=== PATIENT | female | born 1930 | race Caucasian/White ===

== ENCOUNTER 2019-02-12 03:28 | Inpatient (IN) | payer MEDICARE ==
[2019-02-12 03:58] LABS: #Basophils 0.1 thou/uL (0.0-0.2); #Eosinphils 0.1 thou/uL (0.0-0.7); #Lymphocytes 2.1 thou/uL (1.20-3.40); #Monocytes 0.6 thou/uL (0.11-0.59); %Basophils 0.5 % (0.0-1.0); %Eosinophils 1.2 % (0.0-10.0); %Lymphocytes 20.7 % (21.0-51.0); %Monocytes 6.3 % (0.0-10.0); %Neutrophils 71.2 % (42.0-75.0); Hemoglobin 13.5 g/dL (12.0-16.0); Mean Corpuscular HGB CONC 33.6 g/dL (32.0-36.0); Mean Corpuscular Hemoglobin 30.6 pg (27.0-31.0); Mean Platelet Volume 8.8 fL (7.4-10.4); Platelet Count 253 thou/uL (130-400); White Blood Cell (WBC) Count 9.9 thou/uL (4.8-10.8)
[2019-02-12 04:07] LABS: INR-International Normal Ratio 0.9; Prothrombin Time 12.3 SEC (12.0-14.7)
[2019-02-12 04:16] LABS: ALT (SGPT) 13 U/L (8-55); AST (SGOT) 32 U/L (5-34); Albumin 3.8 g/dL (3.4-4.8); Alkaline Phosphatase 54 U/L (40-110); Anion Gap 12 mmol/L (10-20); BUN (Urea Nitrogen) 28 mg/dL (9.8-20.1); Bilirubin, Total 0.3 mg/dL (0.2-1.2); Calc. Creatinine Clearance 0 mL/min (70-130); Calcium 9.2 mg/dL (7.8-10.44); Carbon Dioxide 26 mmol/L (23-31); Chloride 105 mmol/L (98-107); Estimated GFR-MDRD 79; Globulin 2.8 g/dL (2.4-3.5); Glucose 122 mg/dL (83-110); Protein, Total 6.6 g/dL (6.0-8.3); Sodium 139 mmol/L (136-145)
[2019-02-12] MEDS ORDERED: Ondansetron ODT 4 MG TAB PO PRN (05:12)
[2019-02-12] MEDS ORDERED: Acetaminophen 325 MG TAB PO PRN (05:12)
[2019-02-12] MEDS ORDERED: Aspirin 325 MG TAB ONE (05:19)
[2019-02-12] MEDS ORDERED: Atorvastatin Calcium 40 MG TAB PO SCH (06:00)
[2019-02-12 06:43] LABS: Hemoglobin A1c 5.5 % (4.0-6.0)
--- NOTE | 2019-02-12 07:10 | RAD ---
RADIOGRAPH CHEST 1 VIEW: DATE: 02/12/2019 3:38 AM HISTORY: 88-year-old female with acute stroke symptoms. Concern for aspiration. FINDINGS: There is hyperlucency of the upper lung zones, consistent with COPD. There is no evidence of airspace density, pulmonary edema, or pneumothorax. The lateral costophrenic angles are not effaced. IMPRESSION: 1) No acute pulmonary findings. 2) emphysema.
--- NOTE | 2019-02-12 07:52 | CT ---
PRELIMINARY REPORT/[facility]/AFTER HOURS PROCEDURE CT HEAD WITHOUT INTRAVENOUS CONTRAST: CLINICAL HISTORY: *Level 1 stroke alert* F88, last seen normal at 0030. Got up to bathroom, could not get up/left leg not working. TECHNIQUE: Axial computed tomography images of the head/brain without intravenous contrast. COMPARISON: None provided. FINDINGS BRAIN: No acute intraparenchymal hemorrhage. No mass lesion. Hypodensity within the left basal gangl ia, left sub-insular cortex and left centrum ovale which are concerning for subacute ischemic stroke. Additional periventricular and subcortical white matter hypodensities compatible with small vessel ischemic changes. Age-related cerebral atrophy. VENTRICLES: No hydrocephalus. ORBITS: The orbits are unremarkable. SINUSES AND MASTOIDS: The paranasal sinuses and mastoid air cells are clear. SOFT TISSUES: No significant facial or scalp soft tissue swelling evident. No radiopaque foreign body is seen. BONES: No acute skull fracture. IMPRESSION: 1. Hypodensity within left basal ganglia and left sub-insular cortex concerning for subacute ischemic stroke. This can be confirmed with MRI as clinically warranted. No evidence of acute intra-cranial hemorrhage. 2. Additional periventricular and subcortical white matter hypodensities compatible with small vessel ischemic changes with associated age-related cerebral volume loss. ELECTRONICALLY SIGNED BY: Jose Luis Norris M.D. Feb 12, 2019 4:09:32 AM NECK BAND MAKER This report is intended for review by the ordering physician only, in accordance of law. If you recei ve this report in error, please call [facility] at [phone]. FINAL REPORT CT BRAIN NONCONTRAST: 02/12/2019 3:37 a.m. HISTORY: An 88-year-old male undergoing acute stroke. Left lower extremity weakness. COMPARISON: FINDINGS: There are moderate to severe chronic ischemic white matter changes of the cerebrum. No acute intracra nial hemorrhage, mass effect, midline shift, obstructive hydrocephalus or extraaxial fluid collection . In addition to the diffuse low attenuation caused by the chronic ischemic white matter changes, muc h of the left basal ganglia and some of the left caudate head appears to have an asymmetrically great er degree of slightly low attenuation. This raises the possibility of an acute or subacute infarction involving the left corpus striatum. No major disagreement with the preliminary report by [facility]. IMPRESSION: 1. Questionable moderate size infarction of the left corpus striatum, either acute or subacute. A non contrast MRI would be useful in this regard. 2. Moderate to severe chronic ischemic white matter changes. JN R CODE QA POS: OFF
--- NOTE | 2019-02-12 08:36 | CT ---
PRELIMINARY REPORT/[facility]/AFTER HOURS PROCEDURE CTA HEAD WITH INTRAVENOUS CONTRAST: HISTORY: *Level I stroke alert* F88, last seen normal at 0030. Got up to bathroom, could not get up/left leg not working. TECHNIQUE: Axial CTA images of the head with intravenous contrast. MIP reconstructed images were created and rev iewed. CONTRAST: With Isovue-370 100 mL. COMPARISON: None provided. FINDINGS INTERNAL CAROTID ARTERIES: The intracranial ICAs are patent with no significant stenosis. No occlusio n. No aneurysm. Mild calcific atherosclerosis. ANTERIOR CEREBRAL ARTERIES: No significant stenosis. No occlusion. No aneurysm. MIDDLE CEREBRAL ARTERIES: No significant stenosis. No occlusion. No aneurysm. POSTERIOR CEREBRAL ARTERIES: No significant stenosis. No occlusion. No aneurysm. BASILAR ARTERY: No significant stenosis. No occlusion. No aneurysm. VERTEBRAL ARTERIES: No significant stenosis. No occlusion. No aneurysm. Dominant left vertebral arter y. SOFT TISSUES: No acute finding. No masses or lymphadenopathy. The visualized lung apices are clear. Visualized soft tissues of the neck are within normal limits. BONES: No acute osseous abnormality. Multilevel degenerative changes of the cervical spine to includ e loss of cervical lordosis and multilevel severe disc changes. IMPRESSION: 1. Unremarkable CTA of the head. No major arterial occlusion. 2. Unremarkable CTA of the neck. Mild scattered atherosclerosis. ELECTRONICALLY SIGNED BY: Jose Luis Norris M.D. Feb 12, 2019 4:14:31 AM COMPUTATIONAL LINGUIST This report is intended for review by the ordering physician only, in accordance of law. If you recei ve this report in error, please call [facility] at [phone]. FINAL REPORT CTA OF THE HEAD AND CTA OF THE NECK WITH CONTRAST: FINDINGS/IMPRESSION: I agree with the findings and impression given in the preliminary report per [facility] physici an. 1. There is mild atherosclerotic disease in the cervical internal carotid arteries without significa nt stenosis per NASCET criteria. 2. No significant intracranial vascular abnormality. CODE QA POS: [facility]
--- NOTE | 2019-02-12 09:23 | PDOC.HHP ---
Hospitalist HPI - History of Present Illness Left arm and leg weakness History of Present Illness: 88 yo female with HTN presented to ED due to sudden onset left arm and leg weakness. She states she was playing dominos with her family yesterday evening when she started feeling weak in her left hand. Shortly thereafter, she had trouble walking with weakness in her left leg. Hence, she presented to ED this AM. In the ER, she had a CT head that showed new CVA. She is being admitted for the same. Currently, she states that her left hand is getting stronger but continues to report weakness in her left leg. Denies any tingling or numbness. No aggravating or relieving factors. No fever, chills, back pain, headache, vision changes, V/D/C. She reports some nausea and dry cough. No sputum, SOB, CP. No palpitations or lightheadedness. No difficulty swallowing or choking sensations. No seizures or involuntary movements. No urinary symptoms, rash or bruising. No swelling in her legs Hospitalist ROS - Review of Systems All other systems reviewed; all pertinent +/- noted in HPI/Subj Hospitalist History - Past Medical History Source: patient Cardiac: reports: HTN - Past Surgical History Past Surgical History: reports: Total Knee Replacement (Right) - Family History Family History: reports: cardiac disorder (father of [place]) - Social History Smoking Status: Former smoker Tobacco Type: cigarettes Alcohol: reports: None Drugs: reports: none Living Situation: Alone Activity level: uses cane/walker - Exam General Appearance: awake alert, ill appearing Eye: PERRL, anicteric sclera ENT: normocephalic atraumatic, no oropharyngeal lesions, moist mucosa Neck: supple, symmetric, no JVD, no thyromegaly, no lymphadenopathy, no carotid bruit Heart: RRR, no murmur, no gallops, no rubs, normal peripheral pulses Respiratory: CTAB, no wheezes, no rales, no ronchi, normal chest expansion, no tachypnea, normal percussion Gastrointestinal: soft, non-tender, non-distended, normal bowel sounds, no palpable masses, no hepatomegaly, no splenomegaly Extremities: no cyanosis, no clubbing, no edema Skin: normal turgor, no lesions, no rashes Neurological: cranial nerve grossly intact, normal sensation to touch. negative : facial droop Musculoskeletal: normal tone, no muscle wasting Musculoskeletal - other findings: power 5/5 both UE and Right LE; 4/5 in left LE Psychiatric: normal affect, normal behavior, A&O x 3 Hospitalist Results - Labs Result Diagrams: 02/12/19 03:42 02/12/19 03:42 Lab results: WBC 9.9 thou/uL (4.8-10.8) 02/12/19 03:42 Hgb 13.5 g/dL (12.0-16.0) 02/12/19 03:42 Hct 40.1 % (36.0-47.0) 02/12/19 03:42 MCV 91.0 fL (78.0-98.0) 02/12/19 03:42 Plt Count 253 thou/uL (130-400) 02/12/19 03:42 Neutrophils % 71.2 % (42.0-75.0) 02/12/19 03:42 Sodium 139 mmol/L (136-145) 02/12/19 03:42 Potassium 4.0 mmol/L (3.5-5.1) 02/12/19 03:42 Chloride 105 mmol/L (98-107) 02/12/19 03:42 Carbon Dioxide 26 mmol/L (23-31) 02/12/19 03:42 BUN 28 mg/dL (9.8-20.1) H 02/12/19 03:42 Creatinine 0.70 mg/dL (0.6-1.1) 02/12/19 03:42 Glucose 122 mg/dL (83-110) H 02/12/19 03:42 Calcium 9.2 mg/dL (7.8-10.44) 02/12/19 03:42 Total Bilirubin 0.3 mg/dL (0.2-1.2) 02/12/19 03:42 AST 32 U/L (5-34) 02/12/19 03:42 ALT 13 U/L (8-55) 02/12/19 03:42 Alkaline Phosphatase 54 U/L (40-110) 02/12/19 03:42 Serum Total Protein 6.6 g/dL (6.0-8.3) 02/12/19 03:42 Albumin 3.8 g/dL (3.4-4.8) 02/12/19 03:42 - EKG Interpretation EKG: Personally reviewed - Sinus rhythm; No ST-T changes concerning for ischemia - Radiology Interpretation CT scan - head Status: report reviewed by me (IMPRESSION: 1. Hypodensity within left basal ganglia and left sub-insular cortex concerning for subacute ischemic stroke. This can be confirmed with MRI as clinically warranted. No evidence of acute intra-cranial hemorrhage. 2. Additional periventricular and subcortical white matter hypodensities compatible with small vessel ischemic changes with associated age-related cerebral volume loss.) Chest x-ray Status: image reviewed by me (No consolidation or CP angle blunting; Emphysema) Hospitalist H&P A/P - Problem (1) CVA (cerebral vascular accident) Code(s): I63.9 - CEREBRAL INFARCTION, UNSPECIFIED Status: Acute Qualifiers: CVA mechanism: unspecified Qualified Code(s): I63.9 - Cerebral infarction, unspecified Assessment and Plan: CT head with left basal ganglia and sub-insular cortext concerning for acute/sub -acute CVA Has residual LLE weakness Admit to inpatient status. Expected to stay at least 2 midnights. High risk due to new CVA and need for further eval and mgmt. CTA head and neck with no significant stenosis ECHO ordered Cycle cardiac enzymes Neuro consult ASA given Plavix load and 75 mg po daily for 3 weeks PPI to prevent GI bleed PT, OT & speech therapy eval NPO for now until speech eval Statin therapy May need SNF/rehab placement short term Telemetry (2) HTN (hypertension) Code(s): I10 - ESSENTIAL (PRIMARY) HYPERTENSION Status: Chronic Qualifiers: Hypertension type: essential hypertension Qualified Code(s): I10 - Essential (primary) hypertension Assessment and Plan: Hold HTN meds to allow HTN given acute CVA - Plan Plan: CODE STATUS - FULL CODE
[2019-02-12] MEDS ORDERED: Clopidogrel Bisulfate 300 MG TAB PO SCH (09:30)
[2019-02-12 10:26] LABS: Troponin I 0.029 ng/mL (< 0.028)
--- NOTE | 2019-02-12 11:53 | CON ---
DATE OF TELEMEDICINE CONSULTATION: 02-12-19 CHIEF COMPLAINT: Left-sided weakness. HISTORY OF PRESENT ILLNESS: The patient is an 88-year-old lady, who was seen by me during Telemedicine consultation. She reports she has history of sudden onset of left-sided weakness, which started at 9 p.m. She had some improvement since ER visit. So far, she has no numbness or vision problem. She has never had a stroke in the past. PREVIOUS MEDICAL HISTORY: Positive for diabetes. Positive for hypertension. No history of diabetes or hypercholesterolemia. SOCIAL HISTORY: She is a former smoker. She used to smoke cigarettes. She lives alone. There is no history of any alcohol abuse. FAMILY HISTORY: Positive for heart disease in her father, who from an [place]. PAST SURGICAL HISTORY: She had a right total knee replacement in the past. REVIEW OF SYSTEMS: PULMONARY: Negative for shortness of breath or cough. GASTROINTESTINAL: Negative for nausea, vomiting, or diarrhea. CARDIAC: Negative for chest pain or palpitations. DERMATOLOGIC: Negative for any rash. HEMATOLOGIC: Negative for bleeding diathesis or anemia. OPHTHALMOLOGIC: Negative for any double vision. NEUROLOGIC: Positive for left-sided weakness. LABORATORY DATA: White count 9.9, hemoglobin 13.5, hematocrit 40.1, platelet count 253. Coagulations; PT 12.3, INR 0.9. Chemistry; sodium 139, potassium 4.0, chloride 105, bicarb 26, BUN 28, creatinine 0.7, glucose 122. Liver functions within normal limits. IMAGING DATA: Her MRI is pending. CT of the head did not show any acute hemorrhage or infarct. CT angio is negative for any acute vascular lesion such as vascular occlusion. She does have mild atherosclerotic disease in the cervical internal carotid, but no vascular stenosis noted. PHYSICAL EXAMINATION: GENERAL APPEARANCE: Well-built, well-nourished lady. CHEST: Clear vesicular breathing. CARDIOVASCULAR: S1, S2 heard. No murmurs. VITAL SIGNS: As noted in the ER chart within normal limits. ABDOMEN: Soft. NEUROLOGICAL EXAMINATION: Higher intellectual functions, normal. Orientation to time, place, and person. Cranial nerves 2 through 12 normal. Extraocular movements, sensation of face is normal. Pupils are 2 mm, reactive to light. Tongue midline. No atrophy noted. Normal hearing bilaterally. Motor examination; bulk normal, tone normal. Strength 5/5 on the right side and left upper extremity. In the lower extremity, her strength was 4/5. Deep tendon reflexes 2+. Sensory, normal to touch. Cerebellar, normal [id number] and [id number]. IMPRESSION: The patient is an 88-year-old lady with a history of sudden onset left-sided weakness since last night. There seemed to be some interval improvement. She never had a stroke. She is not on aspirin on a regular basis at home. Her examination shows mild left leg weakness at this time with mild facial asymmetry on the left side, otherwise rest of the exam is normal. Likely, this is acute stroke, not visible on the CT. RECOMMENDATIONS: Please complete workup with MRI, echocardiogram, and carotid Doppler. Start aspirin and statin for stroke prophylaxis. I will follow up the patient with you tomorrow. Job ID: [id number] [facility]
--- NOTE | 2019-02-12 14:10 | MRI ---
MRI BRAIN WITHOUT CONTRAST: INDICATIONS: Left sided weakness. FINDINGS: There is a small recent infarction localizing to the posterior limb right internal capsule, abutting the lateral aspect of the right thalamus. There is moderate to severe chronic microvascular ischemic disease of the cerebral white matter. There are a few scattered punctate foci of susceptibility, whic h may relate to hemosiderin deposition from microangiopathy. There is age related parenchymal volume loss with slight compensatory dilatation of the ventricular system. Multiple perivascular spaces of e ach basal ganglia are seen. IMPRESSION: Small recent infarction localizing to posterior limb right internal capsule, superimposed upon modera te to severe chronic ischemic disease of the cerebral white matter. POS: C
[2019-02-12 15:51] LABS: Troponin I Less than 0.010 ng/mL (< 0.028)
[2019-02-12 16:00] VITALS: BMI 28.4
[2019-02-12] MEDS: Heparin 5,000 UNITS/ML VIAL SC SCH ×2 (18:13→21:58)
[2019-02-12] MEDS: Atorvastatin Calcium 40 MG TAB PO SCH (21:58)
[2019-02-12 23:08] LABS: Troponin I 0.026 ng/mL (< 0.028)
[2019-02-13 06:12] LABS: #Basophils 0.1 thou/uL (0.0-0.2); #Eosinphils 0.2 thou/uL (0.0-0.7); #Lymphocytes 1.5 thou/uL (1.20-3.40); #Monocytes 0.7 thou/uL (0.11-0.59); #Neutrophils 5.4 thou/uL (1.40-6.50); %Basophils 0.8 % (0.0-1.0); %Eosinophils 2.5 % (0.0-10.0); %Lymphocytes 19.5 % (21.0-51.0); %Monocytes 8.8 % (0.0-10.0); %Neutrophils 68.4 % (42.0-75.0); Mean Corpuscular HGB CONC 33.5 g/dL (32.0-36.0); Mean Corpuscular Hemoglobin 30.7 pg (27.0-31.0); Mean Corpuscular Volume 91.4 fL (78.0-98.0); Mean Platelet Volume 8.6 fL (7.4-10.4); Platelet Count 236 thou/uL (130-400); RBC Distribution Width 12.2 % (11.5-14.5); Red Blood Cell (RBC) Count 4.24 mill/uL (4.20-5.40); White Blood Cell (WBC) Count 7.9 thou/uL (4.8-10.8)
[2019-02-13 06:38] LABS: Anion Gap 9 mmol/L (10-20); BUN (Urea Nitrogen) 16 mg/dL (9.8-20.1); Calc. Creatinine Clearance 72 mL/min (70-130); Calcium 8.5 mg/dL (7.8-10.44); Carbon Dioxide 28 mmol/L (23-31); Cardiac Risk 3.5 (Less than 4.5); Chloride 107 mmol/L (98-107); Cholesterol 182 mg/dl (< 200 Desired); Estimated GFR-MDRD 86; Glucose 104 mg/dL (83-110); HDL Cholesterol 52 mg/dL (>60 Neg Risk); LDL Cholesterol, Calculated 108 mg/dL; Potassium 3.8 mmol/L (3.5-5.1); Sodium 140 mmol/L (136-145); Triglycerides 111 mg/dL (Less than 150)
[2019-02-13] MEDS ORDERED: Lisinopril 10 MG TAB PO SCH (09:00)
--- NOTE | 2019-02-13 09:18 | PDOC.HOSPP ---
- Subjective Encounter Date: 02/13/19 Encounter Time: 09:25 Subjective: Patient states that her left leg feels better today. No dizziness, vertigo, nausea or vomiting. Reports tolerance to diet. No fever, chills, CP, SOB. She is eager to be discharged home. - Objective Vital Signs & Weight: Vital Signs (12 hours) Temp Pulse Resp BP Pulse Ox 02/13/19 04:23 98.6 F 66 16 171/76 H 100 02/13/19 00:20 97.4 F L 60 16 147/77 H 95 02/12/19 21:48 97.9 F 60 16 95 Weight Weight 165 lb 8 oz I&O: 02/12/19 02/13/19 02/14/19 06:59 06:59 06:59 Output Total 500 Balance -500 Result Diagrams: 02/13/19 05:45 02/13/19 05:46 Radiology Reviewed by me: No (MRI brain infarct right internal capsule posterior limb) Hospitalist ROS - Medication Medications: Active Medications Generic Name Dose Route Start Last Admin Trade Name Freq PRN Reason Stop Dose Admin Atorvastatin Calcium 40 mg 02/12/19 21:00 02/12/19 21:58 Lipitor PO 40 mg HS JOSÉ LUIS Administration Heparin Sodium (Porcine) 5,000 units 02/12/19 09:00 02/12/19 21:58 Heparin SC 5,000 units TID JOSÉ LUIS Administration - Exam General Appearance: NAD, awake alert Eye: PERRL, anicteric sclera ENT: normocephalic atraumatic, no oropharyngeal lesions, moist mucosa Neck: supple, symmetric, no JVD, no thyromegaly, no lymphadenopathy Heart: RRR, no murmur, no gallops, no rubs Respiratory: CTAB, no wheezes, no ronchi, normal chest expansion Gastrointestinal: soft, non-tender, non-distended, normal bowel sounds, no palpable masses Hosp A/P (1) CVA (cerebral vascular accident) Code(s): I63.9 - CEREBRAL INFARCTION, UNSPECIFIED Status: Acute Qualifiers: CVA mechanism: unspecified Qualified Code(s): I63.9 - Cerebral infarction, unspecified (2) HTN (hypertension) Code(s): I10 - ESSENTIAL (PRIMARY) HYPERTENSION Status: Chronic Qualifiers: Hypertension type: essential hypertension Qualified Code(s): I10 - Essential (primary) hypertension - Plan PT/OT, DVT proph w/lanettex Hospitalist A/P (1) CVA (cerebral vascular accident) Code(s): I63.9 - CEREBRAL INFARCTION, UNSPECIFIED Status: Acute Qualifiers: CVA mechanism: unspecified Qualified Code(s): I63.9 - Cerebral infarction, unspecified Assessment and Plan: MRI with right internal capsule infarct Likely embolic in nature of MCA territory CTA head and neck with no significant stenosis ECHO pending Neuro on board ASA & Plavix load po daily for 3 weeks Then, ASA daily lifelong PPI to prevent GI bleed PT, OT on board Rehab recommended Statin therapy (2) HTN (hypertension) Code(s): I10 - ESSENTIAL (PRIMARY) HYPERTENSION Status: Chronic Qualifiers: Hypertension type: essential hypertension Qualified Code(s): I10 - Essential (primary) hypertension Assessment and Plan: Elevated BP in 180s Will resume home dose of ACEI DC DISPO - SNF/Rehab/HH depending on progress
[2019-02-13] MEDS: Aspirin 81 mg Enteric Coated Tablet PO SCH (10:06)
[2019-02-13] MEDS: Clopidogrel Bisulfate 75 MG TAB PO SCH (10:06)
[2019-02-13] MEDS: Ascorbic Acid 500 mg Chewable Tablet PO SCH (10:06)
[2019-02-13] MEDS: Heparin 5,000 UNITS/ML VIAL SC SCH ×3 (10:07→21:51)
[2019-02-13 10:55] LABS: Bacteria/HPF None Seen HPF (None Seen); Bilirubin Negative (Negative); Blood, Urine Negative (Negative); Calcium Oxalate Crystals 3+ HPF (None Seen); Clarity Clear (Clear); Glucose, Urine (Dipstick) Normal (Negative); Leukocyte 75 Leu/uL (Negative); Nitrite Negative (Negative); Protein, Urine (Dipstick) Negative (Neg-Trace); RBC/HPF 0-3 HPF (0-3); Squamous Epithelial 0-3 HPF (0-3); Urobilinogen Normal mg/dL (Less than 2)
[2019-02-13] MEDS: Atorvastatin Calcium 40 MG TAB PO SCH (21:51)
[2019-02-14 05:20] LABS: #Basophils 0.1 thou/uL (0.0-0.2); #Eosinphils 0.2 thou/uL (0.0-0.7); #Lymphocytes 1.5 thou/uL (1.20-3.40); #Monocytes 0.8 thou/uL (0.11-0.59); #Neutrophils 4.6 thou/uL (1.40-6.50); %Basophils 0.8 % (0.0-1.0); %Eosinophils 2.7 % (0.0-10.0); %Lymphocytes 21.4 % (21.0-51.0); %Monocytes 10.7 % (0.0-10.0); %Neutrophils 64.4 % (42.0-75.0); Hemoglobin 13.1 g/dL (12.0-16.0); Mean Corpuscular HGB CONC 32.6 g/dL (32.0-36.0); Mean Corpuscular Hemoglobin 29.8 pg (27.0-31.0); Mean Corpuscular Volume 91.5 fL (78.0-98.0); Mean Platelet Volume 8.4 fL (7.4-10.4); Platelet Count 243 thou/uL (130-400); RBC Distribution Width 12.1 % (11.5-14.5); Red Blood Cell (RBC) Count 4.38 mill/uL (4.20-5.40); White Blood Cell (WBC) Count 7.2 thou/uL (4.8-10.8)
[2019-02-14 05:39] LABS: Anion Gap 9 mmol/L (10-20); BUN (Urea Nitrogen) 12 mg/dL (9.8-20.1); Calc. Creatinine Clearance 75 mL/min (70-130); Calcium 8.7 mg/dL (7.8-10.44); Carbon Dioxide 29 mmol/L (23-31); Chloride 108 mmol/L (98-107); Estimated GFR-MDRD 89; Glucose 106 mg/dL (83-110); Potassium 3.7 mmol/L (3.5-5.1); Sodium 142 mmol/L (136-145)
[2019-02-14] MEDS: Clopidogrel Bisulfate 75 MG TAB PO SCH (09:08)
[2019-02-14] MEDS: Aspirin 81 mg Enteric Coated Tablet PO SCH (09:09)
[2019-02-14] MEDS: Lisinopril 10 MG TAB PO SCH (09:09)
[2019-02-14] MEDS: Ascorbic Acid 500 mg Chewable Tablet PO SCH (09:09)
[2019-02-14] MEDS: Heparin 5,000 UNITS/ML VIAL SC SCH ×3 (09:09→20:41)
--- NOTE | 2019-02-14 15:07 | PDOC.HOSPP ---
- Subjective Encounter Date: 02/14/19 Encounter Time: 12:00 Subjective: Reports feeling better and that her strength in her left leg is improving. No dizziness, N/V. No fever, chills, SOB, CP. - Objective Vital Signs & Weight: Vital Signs (12 hours) Temp Pulse Resp BP Pulse Ox 02/14/19 11:36 98.1 F 61 20 128/66 96 02/14/19 09:12 98.4 F 58 L 17 158/77 H 97 02/14/19 04:00 97.4 F L 67 16 189/87 H 96 Weight Weight 165 lb 8 oz I&O: 02/13/19 02/14/19 02/15/19 06:59 06:59 06:59 Intake Total 660 120 Output Total 500 1300 Balance -500 -640 120 Result Diagrams: 02/14/19 05:07 02/14/19 05:07 Hospitalist ROS - Medication Medications: Active Medications Generic Name Dose Route Start Last Admin Trade Name Freq PRN Reason Stop Dose Admin Ascorbic Acid 500 mg 02/13/19 09:00 02/14/19 09:09 Vitamin C PO 500 mg DAILY JOSÉ LUIS Administration Aspirin 81 mg 02/13/19 09:00 02/14/19 09:09 Ecotrin PO 81 mg DAILY JOSÉ LUIS Administration Atorvastatin Calcium 40 mg 02/12/19 21:00 02/13/19 21:51 Lipitor PO 40 mg HS JOSÉ LUIS Administration Clopidogrel Bisulfate 75 mg 02/13/19 09:00 02/14/19 09:08 Plavix PO 75 mg DAILY JOSÉ LUIS Administration Heparin Sodium (Porcine) 5,000 units 02/12/19 09:00 02/14/19 09:09 Heparin SC 5,000 units TID JOSÉ LUIS Administration Lisinopril 20 mg 02/14/19 09:00 02/14/19 09:09 Zestril PO 20 mg DAILY JOSÉ LUIS Administration Pantoprazole Sodium 40 mg 02/13/19 09:00 02/14/19 09:08 Protonix PO 40 mg DAILY JOSÉ LUIS Administration - Exam General Appearance: NAD, awake alert Eye: PERRL, anicteric sclera ENT: normocephalic atraumatic, no oropharyngeal lesions, moist mucosa Neck: supple, symmetric, no JVD, no thyromegaly, no lymphadenopathy Heart: RRR, no murmur, no gallops, no rubs, normal peripheral pulses Respiratory: CTAB, no wheezes, no rales, no ronchi, normal chest expansion, no tachypnea Gastrointestinal: soft, non-tender, non-distended, normal bowel sounds, no bruit Hosp A/P (1) CVA (cerebral vascular accident) Code(s): I63.9 - CEREBRAL INFARCTION, UNSPECIFIED Status: Acute Qualifiers: CVA mechanism: embolism Precerebral and cerebral artery: middle cerebral artery Laterality of affected vessel: right Qualified Code(s): I63.411 - Cerebral infarction due to embolism of right middle cerebral artery (2) HTN (hypertension) Code(s): I10 - ESSENTIAL (PRIMARY) HYPERTENSION Status: Chronic Qualifiers: Hypertension type: essential hypertension Qualified Code(s): I10 - Essential (primary) hypertension - Plan DVT proph /[facility] Hospitalist A/P (1) CVA (cerebral vascular accident) Code(s): I63.9 - CEREBRAL INFARCTION, UNSPECIFIED Status: Acute Qualifiers: CVA mechanism: unspecified Qualified Code(s): I63.9 - Cerebral infarction, unspecified Assessment and Plan: MRI with acute right internal capsule infarct Likely embolic in nature of MCA territory CTA head and neck with no significant stenosis ECHO with preserved EF and no wall motion abnormalities Neuro on board ASA & Plavix po daily for 3 weeks Then, ASA daily lifelong PPI to prevent GI bleed for 3-4 wks PT, OT on board Rehab recommended Statin therapy Patient might benefit from outpatient loop recorder to evaluate for A.Fib (2) HTN (hypertension) Code(s): I10 - ESSENTIAL (PRIMARY) HYPERTENSION Status: Chronic Qualifiers: Hypertension type: essential hypertension Qualified Code(s): I10 - Essential (primary) hypertension Assessment and Plan: Elevated BP Increase dose of ACEI DC DISPO - Rehab likely on Friday
[2019-02-14] MEDS: Atorvastatin Calcium 40 MG TAB PO SCH (20:39)
[2019-02-15 05:04] LABS: #Eosinphils 0.1 thou/uL (0.0-0.7); #Lymphocytes 2.1 thou/uL (1.20-3.40); #Neutrophils 4.6 thou/uL (1.40-6.50); %Basophils 0.4 % (0.0-1.0); %Eosinophils 1.8 % (0.0-10.0); %Lymphocytes 26.8 % (21.0-51.0); %Monocytes 12.4 % (0.0-10.0); %Neutrophils 58.6 % (42.0-75.0); Hemoglobin 12.7 g/dL (12.0-16.0); Mean Corpuscular HGB CONC 32.7 g/dL (32.0-36.0); Mean Corpuscular Volume 91.9 fL (78.0-98.0); Mean Platelet Volume 8.5 fL (7.4-10.4); Platelet Count 235 thou/uL (130-400); RBC Distribution Width 12.2 % (11.5-14.5); Red Blood Cell (RBC) Count 4.24 mill/uL (4.20-5.40); White Blood Cell (WBC) Count 7.9 thou/uL (4.8-10.8)
[2019-02-15 05:27] LABS: Anion Gap 9 mmol/L (10-20); BUN (Urea Nitrogen) 13 mg/dL (9.8-20.1); Calc. Creatinine Clearance 66 mL/min (70-130); Calcium 8.8 mg/dL (7.8-10.44); Carbon Dioxide 31 mmol/L (23-31); Chloride 105 mmol/L (98-107); Estimated GFR-MDRD 78; Glucose 125 mg/dL (83-110); Potassium 4.1 mmol/L (3.5-5.1); Sodium 141 mmol/L (136-145)
--- NOTE | 2019-02-15 07:34 | PDOC.HOSPP ---
- Subjective Encounter Date: 02/15/19 Encounter Time: 07:32 Subjective: "I didnt walk yesterday" - Objective Vital Signs & Weight: Vital Signs (12 hours) Temp Pulse Resp BP Pulse Ox 02/15/19 04:00 98.6 F 62 18 177/82 H 97 02/14/19 23:31 98.6 F 66 16 153/79 H 96 02/14/19 20:00 98.3 F 53 L 20 127/65 96 Weight Weight 165 lb 8 oz I&O: 02/14/19 02/15/19 02/16/19 06:59 06:59 06:59 Intake Total 660 240 Output Total 1300 871 Balance -286 -833 Result Diagrams: 02/15/19 04:41 02/15/19 04:41 Hospitalist ROS - Medication Medications: Active Medications Generic Name Dose Route Start Last Admin Trade Name Freq PRN Reason Stop Dose Admin Ascorbic Acid 500 mg 02/13/19 09:00 02/14/19 09:09 Vitamin C PO 500 mg DAILY JOSÉ LUIS Administration Aspirin 81 mg 02/13/19 09:00 02/14/19 09:09 Ecotrin PO 81 mg DAILY JOSÉ LUIS Administration Atorvastatin Calcium 40 mg 02/12/19 21:00 02/14/19 20:39 Lipitor PO 40 mg HS JOSÉ LUIS Administration Clopidogrel Bisulfate 75 mg 02/13/19 09:00 02/14/19 09:08 Plavix PO 75 mg DAILY JOSÉ LUIS Administration Heparin Sodium (Porcine) 5,000 units 02/12/19 09:00 02/14/19 20:41 Heparin SC 5,000 units TID JOSÉ LUIS Administration Lisinopril 20 mg 02/14/19 09:00 02/14/19 09:09 Zestril PO 20 mg DAILY JOSÉ LUIS Administration Pantoprazole Sodium 40 mg 02/13/19 09:00 02/14/19 09:08 Protonix PO 40 mg DAILY JOSÉ LUIS Administration - Exam General Appearance: awake alert Neck: no JVD Heart: RRR, no murmur Respiratory: CTAB, no wheezes Gastrointestinal: soft, normal bowel sounds Extremities: no edema Neurological - other findings: LUE no neuro deficit, LLE- upgoing toe , weakness , mild Hosp A/P (1) CVA (cerebral vascular accident) Code(s): I63.9 - CEREBRAL INFARCTION, UNSPECIFIED Status: Acute Qualifiers: CVA mechanism: thrombosis Precerebral and cerebral artery: middle cerebral artery Laterality of affected vessel: right Qualified Code(s): I63.311 - Cerebral infarction due to thrombosis of right middle cerebral artery (2) HTN (hypertension) Code(s): I10 - ESSENTIAL (PRIMARY) HYPERTENSION Status: Chronic Qualifiers: Hypertension type: essential hypertension Qualified Code(s): I10 - Essential (primary) hypertension - Plan cont asa, statin cont antihypertensives
[2019-02-15] MEDS: Aspirin 81 mg Enteric Coated Tablet PO SCH (09:19)
[2019-02-15] MEDS: Clopidogrel Bisulfate 75 MG TAB PO SCH (09:19)
[2019-02-15] MEDS: Heparin 5,000 UNITS/ML VIAL SC SCH ×2 (09:20→16:37)
[2019-02-15] MEDS: Lisinopril 10 MG TAB PO SCH (09:20)
[2019-02-15] MEDS: Ascorbic Acid 500 mg Chewable Tablet PO SCH (09:20)
--- NOTE | 2019-02-15 14:36 | DIS ---
DATE OF ADMISSION: 02/12/2019 DATE OF DISCHARGE: 02/15/2019 PRIMARY CARE PROVIDER: Out of town. FINAL DIAGNOSES: 1. Acute cerebrovascular accident. 2. Left leg weakness. 3. Hypertension. DISCHARGE MEDICATIONS: 1. Aspirin 81 mg a day. 2. Plavix 75 mg a day. 3. Atorvastatin 40 mg a day. 4. Lisinopril 20 mg daily. 5. Protonix 40 mg a day. 6. Benazepril 5 mg a day. 7. Fosamax 70 mg every seven days. ALLERGIES: NO KNOWN DRUG ALLERGIES. DIET: Heart healthy. PENDING AT TIME OF DISCHARGE: Nothing. CODE STATUS: Full. HOSPITAL COURSE: The patient presented with left leg weakness. On workup, she was found to have a question of a moderate-size infarction, left corpus striatum. MRI was recommended. MRI revealed small recent infarction in the posterior limb of the right internal capsule. The patient was treated with aspirin and Plavix. A CT [place] was known. Unremarkable CTA of the head and neck. Echocardiogram was done, revealed EF of 55% to 60%. The patient underwent PT and OT, did well during the hospital stay. She was referred for outpatient rehab. She has been accepted. She is being transferred to [facility]. Pertinent laboratory during her hospital stay, CBC was unremarkable. Her chemistries were unremarkable except for blood sugar 118 to 122 and mild elevated BUN at 28. At the time of discharge, vital signs are stable. She is progressing with PT and OT. She will be followed there. Upon discharge, she will need to follow up with her PCP in 3 days. Job ID: [id number]
[2019-02-15 16:04] VITALS: BP 156/76; TEMP 98
== END 2019-02-15 17:10 | DRG 66 ==
LOC: ERS 03:28 → OBSVTOIN 05:22 → INTOOBSV 05:22 → ERHOLD 05:22 → 2SE 15:04
PROVIDERS: ADMIT Internal Medicine; ATTEND Internal Medicine
DX: I63.311 Cerebral infarction due to thrombosis of right middle cerebral artery (principal); I10 Essential (primary) hypertension; G83.14 Monoplegia of lower limb affecting left nondominant side; R40.2362 Coma scale, best motor response, obeys commands, at arrival to emergency department; R40.2142 Coma scale, eyes open, spontaneous, at arrival to emergency department; R40.2252 Coma scale, best verbal response, oriented, at arrival to emergency department; R29.702 NIHSS score 2; Z87.891 Personal history of nicotine dependence; Z96.651 Presence of right artificial knee joint; Z82.49 Family history of ischemic heart disease and other diseases of the circulatory system
CPT/HCPCS: 36415; 36416; 70450; 70496; 70498; 70551; 71045; 80048; 80053; 80061; 81001; 83036; 84443; 84484; 85025; 85610; 85730; 93306; J1644